=== PATIENT | female | born 1960 | race Caucasian/White ===

== ENCOUNTER 2022-09-25 16:42 | Emergency (ER) | payer BC ==
[2022-09-25] MEDS ORDERED: Ketorolac 30 MG/ML SDV IM ONE (16:59)
[2022-09-25] MEDS ORDERED: diphenhydrAMINE 50 MG/ML SDV IM ONE (16:59)
[2022-09-25] MEDS ORDERED: Metoclopramide 10 MG/2 ML SDV IM ONE (16:59)
[2022-09-25 18:23] VITALS: BP 135/85; PULSE 88
== END 2022-09-25 18:20 | disposition home or self-care (01) ==
LOC: JD.ED 16:42
DX: R51.9 Headache, unspecified (principal); I10 Essential (primary) hypertension; J45.909 Unspecified asthma, uncomplicated; Z88.1 Allergy status to other antibiotic agents; Z88.2 Allergy status to sulfonamides; Z79.899 Other long term (current) drug therapy
CPT/HCPCS: 96372; 99283; J1200; J1885; J2765; 99282